=== PATIENT | female | born 1985 | race Caucasian/White ===

== ENCOUNTER 2016-06-19 15:34 | Emergency (ER) | payer MEDICARE, OTHER ==
[~2016-06-19] VITALS: Ht 165.1 cm; Wt 74.8 kg
[~2016-06-19 15:34] MED LIST: ACYC800T PO; CEPH-264 PO; DIPH35CR TP; DOCU-27 PO; FLUT9.9S NS; GABA-585 PO; HYDR-971 PO; IBUP-1060 PO; LEVO112T4 PO; LISI-334 PO; NAPR250T2 PO; ONDA4TAB7 PO; OXYC-244 PO; OXYC-323 PO; PENI250T2 PO; PRAZ2CAP2 PO; TRAM50TA PO; TRAZ50TA15 PO; VENL150C PO; ZIPR40CA2 PO; ZIPR80CA2 PO; [UNRECOGNIZED DRUG - CODE] PO
[2016-06-19 16:47] VITALS: BP 115/84
[2016-06-19] MEDS ORDERED: AMOX875T PO (16:56)
[2016-06-19] MEDS ORDERED: HYDR-79 PO (16:56)
--- NOTE | 2016-06-19 16:57 | PHYS DOC ---
Past Medical History Past Medical History: Bipolar Additional Past Medical Histor: agoraphobia, paranoid schizophrenia, psycotic behaviors Past Surgical History: , Hysterectomy, Other Additional Past Surgical Histo: hernia repair Alcohol Use: None Drug Use: None Adult General Chief Complaint Chief Complaint: DENTAL PROBLEM HPI HPI Patient is a 30 year old female with history of bipolar who presents today with left lower gum dental pain and swelling that began 2 or 3 weeks ago. Patient states she does not have money to see the dentist in [facility]. Patient denies any fever or trismus. Review of Systems Review of Systems Constitutional: Denies fever or chills [] Eyes: Denies change in visual acuity, redness, or eye pain [] HENT: Dental pain Integument: Denies rash or skin lesions [] Neurologic: Denies headache, focal weakness or sensory changes [] Endocrine: Denies polyuria or polydipsia [] Allergies Allergies Allergies Coded Allergies Type Severity Reaction Last Updated Verified acetaminophen Allergy Intermediate ITCHING 04/07/16 Yes oxycodone Allergy Intermediate ITCHING 04/07/16 Yes Physical Exam Physical Exam Constitutional: Well developed, well nourished, no acute distress, non-toxic appearance. [] HENT: Normocephalic, atraumatic, bilateral external ears normal, oropharynx moist, no oral exudates, nose normal. [] Browns tooth on the left lower gum has dental carriers and is decayed.There is small amount of swelling around the gum of left lower wisdom teeth with no fluctuance. Extremities: No tenderness, no cyanosis, no clubbing, ROM intact, no edema. [] Neurologic: Alert and oriented X 3, normal motor function, normal sensory function, no focal deficits noted. [] Psychologic: Affect normal, judgement normal, mood normal. [] Current Patient Data Vital Signs Vital Signs Date Time Temp Pulse Resp B/P Pulse Ox O2 Delivery O2 Flow Rate FiO2 06/19/16 16:47 98.2 88 18 99 Room Air 98.2 EKG EKG [] Radiology/Procedures Radiology/Procedures [] Course & Med Decision Making Course & Med Decision Making Pertinent Labs and Imaging studies reviewed. (See chart for details) Patient is in the Ed with Dental pain and abscess that is not ready to drain. D/ c with amoxicillin and Vicoprofen. F/u with her dentist in 7 days. Yong Disclaimer Yong Disclaimer This electronic medical record was generated, in whole or in part, using a voice recognition dictation system. Departure Departure Impression: Primary Impression: Dentalgia Additional Impression: Dental abscess Disposition: 01 HOME, SELF-CARE Condition: STABLE Referrals: NO PCP (PCP) follow up with your dentist in [place] as soon as possible Patient Instructions: Dental Abscess, Dental Caries Additional Instructions: You were seen for a dental abscess and dental carriers. Please complete your antibiotics. Follow up with your dentist in [place] as soon as you can Scripts Hydrocodone/Ibuprofen (Hydrocodone-Ibuprofen 7.5-200 )1 Each Tablet1 Tab PO PRN Q6HRS PRN PAIN #10 TAB Ref 0 Prov:EMMANUEL POST APRN 06/19/16 Amoxicillin 875 Mg Tablet1 Tab PO BID #20 TAB Prov:EMMANUEL POST APRN 06/19/16 Problem Qualifiers EMMANUEL POST APRN Jun 19, 2016 16:57
== END 2016-06-19 17:22 | disposition home or self-care (01) ==
LOC: ER 15:34
DX: K04.7 Periapical abscess without sinus (principal); F31.9 Bipolar disorder, unspecified; F20.0 Paranoid schizophrenia; F40.00 Agoraphobia, unspecified; Z90.710 Acquired absence of both cervix and uterus; Z88.5 Allergy status to narcotic agent; Z88.6 Allergy status to analgesic agent
CPT/HCPCS: 99283

== ENCOUNTER 2016-08-02 19:20 | Emergency (ER) | payer MEDICARE, OTHER ==
[~2016-08-02] VITALS: Ht 165.1 cm; Wt 70.3 kg
[~2016-08-02 19:20] MED LIST changes: +AMOX875T PO; +HYDR-79 PO
--- NOTE | 2016-08-02 21:20 | PHYS DOC ---
Past Medical History Past Medical History: Bipolar, Depression, Schizophrenia, Other Additional Past Medical Histor: PTSD Past Surgical History: , Hysterectomy, Other Additional Past Surgical Histo: UMBILICAL HERNIA REPAIR Alcohol Use: None Drug Use: None Adult General Chief Complaint Chief Complaint: DEPRESSION HPI HPI Patient is a 31 year old female who presents with anxiety due to going to a homeless care home this evening. Reports she has had intermittent anxiety and depression for years with a diagnosis of Bipolar. Denies any SI/HI. ALso c.o rash to face Review of Systems Review of Systems Constitutional: Denies fever or chills Eyes: Denies change in visual acuity, redness, or eye pain [] HENT: Denies nasal congestion or sore throat [] Respiratory: Denies cough or shortness of breath [] Cardiovascular: No additional information not addressed in HPI [] GI: Denies abdominal pain, nausea, vomiting, bloody stools or diarrhea [] : Denies dysuria or hematuria [] Musculoskeletal: Denies back pain or joint pain [] Integument: Rash to face for weeks Neurologic: Denies headache, focal weakness or sensory changes [] Endocrine: Denies polyuria or polydipsia [ psych: Anxious today Current Medications Current Medications Current Medications Medications (Trade) Dose Ordered Sig/Daryl Start Time Stop Time Status Last Admin Dose Admin Alprazolam (Xanax) 0.5 mg 1X ONCE 08/02/16 22:15 08/02/16 22:16 DC 08/02/16 22:02 0.5 MG Allergies Allergies Allergies Coded Allergies Type Severity Reaction Last Updated Verified acetaminophen Allergy Intermediate ITCHING 04/07/16 Yes oxycodone Allergy Intermediate ITCHING 04/07/16 Yes Physical Exam Physical Exam Constitutional: Well developed, well nourished, no acute distress, non-toxic appearance. HENT: Normocephalic, atraumatic, bilateral external ears normal, oropharynx moist, no oral exudates, nose normal. Eyes: PERRLA, EOMI, conjunctiva normal, no discharge. [] Neck: Normal range of motion, no tenderness, supple, no stridor. [] Cardiovascular:Heart rate regular rhythm, no murmur [] Lungs & Thorax: Bilateral breath sounds clear to auscultation [] Abdomen: Bowel sounds normal, soft, no tenderness, no masses, no pulsatile masses. [] Skin: Papular rash to right cheek lateral to mouth. Yellow crusting present. No surrounding cellulitis Back: No tenderness, no CVA tenderness. [] Extremities: No tenderness, no cyanosis, no clubbing, ROM intact, no edema. [] Neurologic: Alert and oriented X 3, normal motor function, normal sensory function, no focal deficits noted. [] Psychologic: Affect normal, judgement normal, mood normal. Current Patient Data Vital Signs Vital Signs Date Time Temp Pulse Resp B/P Pulse Ox O2 Delivery O2 Flow Rate FiO2 08/02/16 22:03 90 20 138/93 97 Room Air 08/02/16 19:26 98.1 98.1 EKG EKG [] Radiology/Procedures Radiology/Procedures [] Impressions: 1. Anxiety 2. Impetigo Course & Med Decision Making Course & Med Decision Making Pertinent Labs and Imaging studies reviewed. (See chart for details) [] Dragon Disclaimer Dragon Disclaimer This electronic medical record was generated, in whole or in part, using a voice recognition dictation system. Departure Departure Impression: Primary Impression: Anxiety Additional Impression: Impetigo Disposition: 01 HOME, SELF-CARE Condition: STABLE Referrals: NO PCP (PCP) Patient Instructions: Anxiety and Panic Attacks, [id number], Impetigo Additional Instructions: Follow up with your primary doctor as discussed. Return if any problems or concerns Scripts Bacitracin 30 Gm Oint...g.1 Rebecca TP BID #30 GM Prov:CHIN DOUGLAS APRN 08/02/16 Problem Qualifiers CHNI DOUGLAS APRN Aug 02, 2016 21:20
[2016-08-02 22:03] VITALS: BP 138/93
[2016-08-02] MEDS ORDERED: BACI28.43 TP (22:09)
[2016-08-02] MEDS ORDERED: ALPRAZOLAM 0.5 MG TABLET PO ONE (22:15)
--- NOTE | 2016-08-03 06:28 | EKG ---
[facility] [address] [place] [address] Test Date: 2016-08-02 Test Time: 19:48:01 Pat Name: PACHECO MACHADO Department: Room: Gender: F Senior Hr Business Partner: : [id number] Requested By: CHIN DOUGLAS Order Number: [id number] Reading MD: Cristhian Kaplan Measurements Intervals [place] Rate: 85 P: 52 MD: 144 QRS: 43 QRSD: 88 T: 50 QT: 376 QTc: 448 Interpretive Statements SINUS RHYTHM RI6.01 Unconfirmed report Electronically Signed On 08-06-2016 13:51:47 TOW MOTOR DRIVER by Cristhian Kaplan
== END 2016-08-02 22:10 | disposition home or self-care (01) ==
LOC: ER 19:20
DX: F41.9 Anxiety disorder, unspecified (principal); L01.00 Impetigo, unspecified; F31.9 Bipolar disorder, unspecified; F20.9 Schizophrenia, unspecified; F43.10 Post-traumatic stress disorder, unspecified; Z88.8 Allergy status to other drugs, medicaments and biological substances; Z88.5 Allergy status to narcotic agent
CPT/HCPCS: 93005; 99284-25

== ENCOUNTER 2016-10-08 00:29 | Emergency (ER) | payer MEDICARE, OTHER ==
[~2016-10-08] VITALS: Ht 165.1 cm; Wt 74.8 kg
[~2016-10-08 00:29] MED LIST changes: +BACI28.43 TP; -PENI250T2 PO; +PENI250T85 PO
[2016-10-08 00:44] VITALS: BP 154/94
[2016-10-08] MEDS ORDERED: chlorproMAZINE 25 MG TABLET PO STA (00:48)
[2016-10-08] MEDS ORDERED: chlorproMAZINE 25 MG TABLET PO ONE (01:00)
[2016-10-08] MEDS ORDERED: LEVO112T4 PO (01:03)
[2016-10-08] MEDS ORDERED: OXCA300T3 PO (01:03)
[2016-10-08] MEDS ORDERED: PRAZ2CAP2 PO (01:03)
[2016-10-08] MEDS ORDERED: LISI-334 PO (01:03)
[2016-10-08] MEDS ORDERED: CHLO50TA6 PO (01:03)
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
== END 2016-10-08 01:18 | disposition home or self-care (01) ==
LOC: ER 00:29
DX: Z76.0 Encounter for issue of repeat prescription (principal); F31.9 Bipolar disorder, unspecified; I10 Essential (primary) hypertension; F20.9 Schizophrenia, unspecified; F43.10 Post-traumatic stress disorder, unspecified; Z88.5 Allergy status to narcotic agent; Z88.6 Allergy status to analgesic agent; Z79.899 Other long term (current) drug therapy
CPT/HCPCS: 99283; Q0161

== ENCOUNTER 2016-11-27 22:06 | Emergency (ER) | payer MEDICARE, OTHER ==
[~2016-11-27] VITALS: Ht 165.1 cm; Wt 79.8 kg
[~2016-11-27 22:06] MED LIST changes: +CHLO50TA6 PO; +DOCU-109 PO; -DOCU-27 PO; +OXCA300T3 PO; -OXYC-244 PO; +OXYC-327 PO; +SULF-16 PO; -[UNRECOGNIZED DRUG - CODE] PO
[2016-11-27 22:50] VITALS: BP 132/91
[2016-11-27] MEDS ORDERED: HYDROcodone/APAP 7.5/325MG 1 TAB TABLET PO ONE (23:30)
[2016-11-27] MEDS ORDERED: HYDR-971 PO (23:32)
--- NOTE | 2016-11-27 23:33 | PHYS DOC ---
Past Medical History Past Medical History: Hypothyroid Additional Past Medical Histor: PTSD Past Surgical History: , Hysterectomy, Other Additional Past Surgical Histo: hernia repair Alcohol Use: None Drug Use: None Adult General Chief Complaint Chief Complaint: ANKLE PROBLEM HPI HPI Patient is a 31 year old female who presents with complaint of right ankle injury. Patient states that she actually rolled her ankle approximately 30 minutes prior to arrival. Patient states that she was carrying groceries at the time when she took a misstep with her right foot and tripped, causing her right foot to invert. Patient states that she is having severe pain in her right ankle and has not been able to ambulate due to pain. Patient has noted swelling along the right lateral aspect of her ankle. Patient denies any other injuries. Patient rates her pain currently is 10 out of 10 and states that it is sharp and throbbing. Patient took 800 mg of ibuprofen prior to arrival with no relief in symptoms. Review of Systems Review of Systems Constitutional: Denies fever or chills [] HENT: Denies nasal congestion or sore throat [] Musculoskeletal: Right ankle injury [] Integument: Denies rash or skin lesions [] Neurologic: Denies headache, focal weakness or sensory changes [] Current Medications Current Medications Current Medications Medications (Trade) Dose Ordered Sig/Daryl Start Time Stop Time Status Last Admin Dose Admin Acetaminophen/ Hydrocodone Bitart (Lortab 7.5/325) 1 tab 1X ONCE 11/27/16 23:30 11/27/16 23:31 DC 11/27/16 23:32 1 TAB Allergies Allergies Allergies Coded Allergies Type Severity Reaction Last Updated Verified bupropion Allergy Intermediate 11/27/16 Yes oxycodone Allergy Intermediate ITCHING 04/07/16 Yes prazosin Allergy Intermediate 11/27/16 Yes venlafaxine Allergy Intermediate 11/27/16 Yes Physical Exam Physical Exam Constitutional: Alert, afebrile, appears in moderate discomfort. [] HENT: Normocephalic, atraumatic, bilateral external ears normal, oropharynx moist, no oral exudates, nose normal. [] Extremities: Moderate soft tissue swelling along right lateral malleolus, reported tenderness to palpation over bilateral malleoli, range of motion not tested secondary to pain, 2+ right dorsalis pedis and posterior tibialis pulses. [] Neurologic: Alert and oriented X 3, normal motor function, normal sensory function, no focal deficits noted. [] Current Patient Data Vital Signs Vital Signs Date Time Temp Pulse Resp B/P (MAP) Pulse Ox O2 Delivery O2 Flow Rate FiO2 11/27/16 23:32 Room Air 11/27/16 22:50 98.5 96 20 95 98.5 EKG EKG Not performed [] Radiology/Procedures Radiology/Procedures 3 view ankle x-ray series interpreted by me: No fractures, moderate soft tissue over lateral malleolus, normal alignment [] Course & Med Decision Making Course & Med Decision Making Pertinent Labs and Imaging studies reviewed. (See chart for details) Patient was given oral [place] in the emergency department. X-rays negative. Patient's symptoms consistent with acute right ankle sprain. An Vishal wrap was applied to the right ankle by the emergency department forest technician. My evaluation post Vishal wrap application showed normal capillary refill in all 5 digits of the right foot and normal sensation. Patient provided with crutches to assist with ambulation. Patient will be discharged with recommended follow- up in 7-10 days a primary doctor if symptoms not improving and return to emergency department for any worsening symptoms. Patient voiced understanding and in agreement with treatment plan. Dragon Disclaimer Dragon Disclaimer This electronic medical record was generated, in whole or in part, using a voice recognition dictation system. Departure Departure Impression: Primary Impression: Right ankle sprain Disposition: 01 HOME, SELF-CARE Condition: IMPROVED Referrals: NO PCP (PCP) Patient Instructions: Ankle Sprain, RICE - Routine Care for Injuries Additional Instructions: Follow-up with your primary doctor in the next 7-10 days if symptoms are not improving. Return to the emergency department for any worsening symptoms. Scripts Hydrocodone/Apap 5-325 (NORCO 5-325 TABLET) 1 Each Tablet 1-2 TAB PO Q4-6HRS Y for PAIN, #15 TAB Prov: STELLA ALAMO MD 11/27/16 Problem Qualifiers Primary Impression: Right ankle sprain Encounter type: initial encounter Involved ligament of ankle: unspecified ligament Qualified Codes: S93.401A - Sprain of unspecified ligament of right ankle, initial encounter STELLA ALAMO MD Nov 27, 2016 23:33
--- NOTE | 2016-11-28 07:15 | RAD ---
Indication: Right ankle injury with pain on the medial and lateral side. Time of exam 2308 hours. 3 views of the right ankle were obtained. There is lateral soft tissue swelling present. The alignment is normal. Ankle mortise is well-maintained. The talar dome is smooth. No fractures are seen. Impression: Lateral ankle swelling. No acute bony abnormality is detected.
== END 2016-11-27 23:40 | disposition home or self-care (01) ==
LOC: ER 22:06
DX: S93.401A Sprain of unspecified ligament of right ankle, initial encounter (principal); E03.9 Hypothyroidism, unspecified; F43.10 Post-traumatic stress disorder, unspecified; Z88.5 Allergy status to narcotic agent; Z88.8 Allergy status to other drugs, medicaments and biological substances; W01.0XXA Fall on same level from slipping, tripping and stumbling without subsequent striking against object, initial encounter; Y93.89 Activity, other specified; Y92.89 Other specified places as the place of occurrence of the external cause; Y99.8 Other external cause status
CPT/HCPCS: 73610; 99284-25

== ENCOUNTER 2016-12-14 22:35 | Emergency (ER) | payer MEDICARE, OTHER ==
[~2016-12-14] VITALS: Ht 165.1 cm; Wt 79.8 kg
[2016-12-14 22:45] VITALS: BP 137/94
[2016-12-14] MEDS ORDERED: HYDROcodone/APAP 5/325MG 1 TAB TABLET PO ONE (23:00)
[2016-12-14] MEDS ORDERED: IBUPROFEN 400 MG TABLET. PO ONE (23:00)
[2016-12-14] MEDS ORDERED: HYDR-971 PO (23:06)
--- NOTE | 2016-12-14 23:09 | PHYS DOC ---
Past Medical History Past Medical History: Bipolar, Hypothyroid Additional Past Medical Histor: PTSD, Schizoaffective disorder Past Surgical History: , Hysterectomy, Other Additional Past Surgical Histo: hernia repair Alcohol Use: None Drug Use: Methamphetamine Social History Narrative: patient requesting detox info 12/14 (provided with [employer] info) Adult General Chief Complaint Chief Complaint: ANKLE PROBLEM HPI HPI Patient is a 31 year old female presenting to the emergency department for evaluation of right ankle pain that she says has persisted since her injury for which she was seen on November 27. She has fell several times since then and that she is still limping on it and it still hurts significantly mostly at the medial malleolus but it comes across the front of her ankle. Mealy there is mild medial malleolus swelling but there is no redness warmth or signs of infection. She is not wearing the splint on arrival but she says that she hasn' t and that she is homeless and has to ambulate a lot and that it makes it hurt more. Review of Systems Review of Systems Constitutional: Denies fever or chills [] Musculoskeletal: Denies back pain. + joint pain [] Integument: Denies rash or skin lesions [] Neurologic: Denies headache, focal weakness or sensory changes [] Current Medications Current Medications Current Medications Medications (Trade) Dose Ordered Sig/Daryl Start Time Stop Time Status Last Admin Dose Admin Acetaminophen/ Hydrocodone Bitart (Lortab 5/325) 2 tab 1X ONCE 12/14/16 23:00 12/14/16 23:01 DC 12/14/16 22:58 2 TAB Ibuprofen (Motrin) 400 mg 1X ONCE 12/14/16 23:00 12/14/16 23:01 DC 12/14/16 22:58 400 MG Allergies Allergies Allergies Coded Allergies Type Severity Reaction Last Updated Verified No Known Drug Allergies 12/14/16 No Physical Exam Physical Exam Constitutional: Well developed, well nourished, no acute distress, non-toxic appearance. [] Extremities: Right medial malleolus and anterior ankle slightly swollen and painful to palpation. Joint is stable with no laxity and she did not have significant pain on movement of the joint. Neurologic: Alert and oriented X 3, normal motor function, normal sensory function, no focal deficits noted. [] Current Patient Data Vital Signs Vital Signs Date Time Temp Pulse Resp B/P (MAP) Pulse Ox O2 Delivery O2 Flow Rate FiO2 12/14/16 22:45 98.0 120 18 95 Room Air 98.0 EKG EKG [] Radiology/Procedures Radiology/Procedures Right ankle x-ray shows no obvious fracture dislocation or soft tissue abnormality. Course & Med Decision Making Course & Med Decision Making She may have a stress fracture but I cannot see anything on x-ray. He may have a serious ligamentous injury so I told her that she needs to follow with orthopedics for this injury and that coming to the emergency department will not be helpful on subsequent encounters and she needs specialty follow-up. Patient aware and agreeable with plan. Dragon Disclaimer Dragon Disclaimer This electronic medical record was generated, in whole or in part, using a voice recognition dictation system. Departure Departure Impression: Primary Impression: Right ankle sprain Disposition: HOME, SELF-CARE Condition: GOOD Referrals: NO PCP (PCP) GIANNI COTE MD Patient Instructions: Ankle Fracture Additional Instructions: TAKE 400MG OF IBUPROFEN EVERY 6 HOURS AND THE NORCO FOR BREAKTHROUGH PAIN. WEAR YOU SOFT SPLINT. YOU NEED TO FOLLOW WITH THE ORTHO DOCTOR. Scripts Hydrocodone/Apap 5-325 (NORCO 5-325 TABLET) 1 Each Tablet 1 TAB PO PRN Q6HRS Y for PAIN, #10 TAB 0 Refills Prov: CARIE ARROYO DO 12/14/16 Problem Qualifiers Primary Impression: Right ankle sprain Encounter type: subsequent encounter Involved ligament of ankle: tibiofibular ligament Qualified Codes: S93.431D - Sprain of tibiofibular ligament of right ankle, subsequent encounter CARIE ARROYO DO Dec 14, 2016 23:09
--- NOTE | 2016-12-15 08:01 | RAD ---
Right ankle 3 views. History: Pain, injury 2 weeks ago 3 views were taken of the right ankle. There is a fracture of the posterior malleolus of the distal tibia without displacement. No other acute fracture is noted. Impression: 1. Vertical fracture through the posterior aspect of the talus without displacement.
== END 2016-12-14 23:13 | disposition home or self-care (01) ==
LOC: ER 22:35
DX: S93.431D Sprain of tibiofibular ligament of right ankle, subsequent encounter (principal); E03.9 Hypothyroidism, unspecified; F31.9 Bipolar disorder, unspecified; F25.9 Schizoaffective disorder, unspecified; F43.10 Post-traumatic stress disorder, unspecified; F15.10 Other stimulant abuse, uncomplicated; X58.XXXD Exposure to other specified factors, subsequent encounter
CPT/HCPCS: 73610; 99284

== ENCOUNTER 2017-07-11 13:02 | Emergency (ER) | payer MEDICARE, OTHER ==
[2017-07-11] MEDS: HYDROcodone/APAP 5/325MG 1 TAB TABLET PO ×2 (14:16)
== END 2017-07-11 14:29 | disposition home or self-care (01) ==
LOC: ER 13:02
DX: K02.9 Dental caries, unspecified (principal); K08.89 Other specified disorders of teeth and supporting structures; K04.7 Periapical abscess without sinus; E03.9 Hypothyroidism, unspecified; F43.10 Post-traumatic stress disorder, unspecified; F31.9 Bipolar disorder, unspecified; F25.9 Schizoaffective disorder, unspecified
CPT/HCPCS: 99282

== ENCOUNTER 2018-01-15 21:15 | Emergency (ER) | payer MEDICARE, OTHER ==
[~2018-01-15] VITALS: Ht 162.6 cm; Wt 77.1 kg
[~2018-01-15 21:15] MED LIST changes: -NAPR250T2 PO; +NAPR250T6 PO; +TRAZ-85 PO; -TRAZ50TA15 PO
[2018-01-15 21:38] VITALS: BP 147/98
[2018-01-15] MEDS ORDERED: CLIN300C8 PO (21:50)
--- NOTE | 2018-01-15 21:50 | PHYS DOC ---
Past Medical History Past Medical History: Bipolar, Hypothyroid Additional Past Medical Histor: PTSD, Schizoaffective disorder Past Surgical History: , Hysterectomy, Other Additional Past Surgical Histo: hernia repair Alcohol Use: None Drug Use: None Adult General Chief Complaint Chief Complaint: DENTAL PROBLEM [facility] HPI Patient is a 32 year old female presents to the ED complaining of dental pain 2 days ago. Patient has a history of dental pain. States she's been trying to get into the dentist but is unable to get in. Describes the pain as sharp. Rates pain as 8 out of 10. Pain with chewing. Denies difficulty swallowing, tongue swelling, fever, chest pain, shortness of breath, nausea/vomiting, abdominal pain, rash or weakness. Review of Systems Review of Systems Constitutional: Denies fever or chills [] Eyes: Denies change in visual acuity, redness, or eye pain [] HENT: Complains of dental pain. Denies nasal congestion or sore throat [] Respiratory: Denies cough or shortness of breath [] Cardiovascular: No additional information not addressed in HPI [] GI: Denies abdominal pain, nausea, vomiting, bloody stools or diarrhea [] : Denies dysuria or hematuria [] Musculoskeletal: Denies back pain or joint pain [] Integument: Denies rash or skin lesions [] Neurologic: Denies headache, focal weakness or sensory changes [] All other systems were reviewed and found to be within normal limits, except as documented in this note. Allergies Allergies Allergies Coded Allergies Type Severity Reaction Last Updated Verified No Known Drug Allergies 12/14/16 No Physical Exam Physical Exam Constitutional: Well developed, well nourished, no acute distress, non-toxic appearance. [] HENT: Normocephalic, atraumatic, bilateral external ears normal, oropharynx moist, no oral exudates, nose normal. left lower molar dental caries. no abscess or fluctuance. Poor dentition throughout.[] Eyes: PERRLA, EOMI, conjunctiva normal, no discharge. [] Neck: Normal range of motion, no tenderness, supple, no stridor. [] Cardiovascular:Heart rate regular rhythm, no murmur [] Lungs & Thorax: Bilateral breath sounds clear to auscultation [] Skin: Warm, dry, no erythema, no rash. [] Neurologic: Alert and oriented X 3, normal motor function, normal sensory function, no focal deficits noted. [] Psychologic: Affect normal, judgement normal, mood normal. [] Current Patient Data Vital Signs Vital Signs Date Time Temp Pulse Resp B/P (MAP) Pulse Ox O2 Delivery O2 Flow Rate FiO2 01/15/18 21:38 98.1 104 20 147/98 (114) 99 Room Air 98.1 EKG EKG [] Radiology/Procedures Radiology/Procedures [] Course & Med Decision Making Course & Med Decision Making Pertinent Labs and Imaging studies reviewed. (See chart for details) []Will prescribe clindamycin outpatient. Discussed symptomatic treatment outpatient. Patient given dental clinic resource handout. Discussed follow-up and reasons to return to the ED. Patient understands and agrees with plan. Dragon Disclaimer Dragon Disclaimer This electronic medical record was generated, in whole or in part, using a voice recognition dictation system. Departure Departure Impression: Primary Impression: Dental caries Additional Impression: Pain, dental Disposition: 01 HOME, SELF-CARE Condition: IMPROVED Referrals: YOSEPH PANIAGUA MD (PCP) MANNIE SILVER DDS Patient Instructions: Dental Caries, Dental Pain Scripts Clindamycin Hcl (CLINDAMYCIN HCL) 300 Mg Capsule 1 CAP PO TID for 7 Days, #21 CAP Prov: KUNAL RIVERS 01/15/18 Problem Qualifiers KUNAL RIVERS Jan 15, 2018 21:50
== END 2018-01-15 22:10 | disposition home or self-care (01) ==
LOC: ER 21:15
DX: K02.9 Dental caries, unspecified (principal); K08.89 Other specified disorders of teeth and supporting structures; E03.9 Hypothyroidism, unspecified; F31.9 Bipolar disorder, unspecified; F25.9 Schizoaffective disorder, unspecified; F43.10 Post-traumatic stress disorder, unspecified
CPT/HCPCS: 99283

== ENCOUNTER 2018-01-18 16:41 | Emergency (ER) | payer MEDICARE, OTHER ==
[~2018-01-18] VITALS: Ht 162.6 cm; Wt 77.1 kg
[~2018-01-18 16:41] MED LIST changes: +CLIN300C8 PO
[2018-01-18 16:42] VITALS: BP 148/83
[2018-01-18] MEDS ORDERED: CLIN300C8 PO (17:09)
--- NOTE | 2018-01-18 17:11 | PHYS DOC ---
Past Medical History Past Medical History: Bipolar, Hypothyroid Additional Past Medical Histor: PTSD, Schizoaffective disorder Past Surgical History: , Hysterectomy, Other Additional Past Surgical Histo: hernia repair Alcohol Use: None Drug Use: None Adult General Chief Complaint Chief Complaint: DENTAL PROBLEM [facility] HPI Patient is a 32 year old female presents to the ED complaining of dental pain 5 days. Patient seen on the 3 days ago on the by myself and was discharged with clindamycin. States that she did not wait for the antibiotic prescription because she had to leave so she did not get her antibiotic prescription from the nurse at discharge. Presents to the ED today for her antibiotic prescription. Complains of dental pain to left lower molars. Describes the pain as sharp. Rates the pain as 8 out of 10. Denies injury, fever, nausea/vomiting, chest pain, shortness of breath, headache, difficulty swallowing or rash. Review of Systems Review of Systems Constitutional: Denies fever or chills [] Eyes: Denies change in visual acuity, redness, or eye pain [] HENT: Complains of dental pain. Denies nasal congestion or sore throat [] Respiratory: Denies cough or shortness of breath [] Cardiovascular: No additional information not addressed in HPI [] GI: Denies abdominal pain, nausea, vomiting, bloody stools or diarrhea [] : Denies dysuria or hematuria [] Musculoskeletal: Denies back pain or joint pain [] Integument: Denies rash or skin lesions [] Neurologic: Denies headache, focal weakness or sensory changes [] All other systems were reviewed and found to be within normal limits, except as documented in this note. Allergies Allergies Allergies Coded Allergies Type Severity Reaction Last Updated Verified No Known Drug Allergies 12/14/16 No Physical Exam Physical Exam Constitutional: Well developed, well nourished, no acute distress, non-toxic appearance. [] HENT: Normocephalic, atraumatic, bilateral external ears normal, oropharynx moist, no oral exudates, nose normal. Left lower molar dental caries. No abscess or fluctuance. Poor dentition throughout. Eyes: PERRLA, EOMI, conjunctiva normal, no discharge. [] Neck: Normal range of motion, no tenderness, supple, no stridor. [] Cardiovascular:Heart rate regular rhythm, no murmur [] Lungs & Thorax: Bilateral breath sounds clear to auscultation [] Skin: Warm, dry, no erythema, no rash. [] Neurologic: Alert and oriented X 3, normal motor function, normal sensory function, no focal deficits noted. [] Psychologic: Affect normal, judgement normal, mood normal. [] Current Patient Data Vital Signs Vital Signs Date Time Temp Pulse Resp B/P (MAP) Pulse Ox O2 Delivery O2 Flow Rate FiO2 01/18/18 16:42 98.2 82 16 97 Room Air 98.2 EKG EKG [] Radiology/Procedures Radiology/Procedures [] Course & Med Decision Making Course & Med Decision Making Pertinent Labs and Imaging studies reviewed. (See chart for details) Staff Physician Addendum: I was working in the ER during the course of this patient's visit. I was available for consultation as needed, but I was not directly involved in the care of this patient. Nimo Chavez DO Staff Physician Yong Disclaimer Dragon Disclaimer This electronic medical record was generated, in whole or in part, using a voice recognition dictation system. Departure Departure Impression: Primary Impression: Dental caries Disposition: 01 HOME, SELF-CARE Condition: IMPROVED Referrals: YOSEPH PANIAGUA MD (PCP) MANNIE SILVER DDS Patient Instructions: Dental Caries Scripts Clindamycin Hcl (CLINDAMYCIN HCL) 300 Mg Capsule 300 MG PO TID for 7 Days, #21 CAP Prov: KUNAL RIVERS 01/18/18 KUNAL RIVERS Jan 18, 2018 17:11 NIMO CHAVEZ DO Jan 19, 2018 06:36
== END 2018-01-18 17:17 | disposition home or self-care (01) ==
LOC: ER 16:41
DX: K02.9 Dental caries, unspecified (principal); K08.89 Other specified disorders of teeth and supporting structures; E03.9 Hypothyroidism, unspecified; F31.9 Bipolar disorder, unspecified; F25.9 Schizoaffective disorder, unspecified; F43.10 Post-traumatic stress disorder, unspecified
CPT/HCPCS: 99283

== ENCOUNTER 2018-02-14 18:42 | Emergency (ER) | payer MEDICARE, OTHER | END 2018-02-14 20:45 | disposition left against medical advice (07) | LOC: ER 18:42 | DX: R51 Headache (principal); H53.8 Other visual disturbances; Z53.21 Procedure and treatment not carried out due to patient leaving prior to being seen by health care provider; X58.XXXA Exposure to other specified factors, initial encounter; Y93.89 Activity, other specified; Y92.89 Other specified places as the place of occurrence of the external cause; Y99.8 Other external cause status ==

== ENCOUNTER 2021-09-11 10:10 | Emergency (ER) | payer MEDICARE, OTHER ==
[~2021-09-11] VITALS: Ht 165.1 cm; Wt 74.8 kg
[~2021-09-11 10:10] MED LIST changes: -ACYC800T PO; +ACYC800T88 PO; +CLIN-94 PO; -CLIN300C8 PO; +HYDR-3164 PO; -HYDR-79 PO; -HYDR-971 PO; +HYDROCODONE-IB1 EAC3 PO; -LEVO112T4 PO; +LEVO112T49 PO; -LISI-334 PO; +LISI20TA18 PO; +NAPR-699 PO; -NAPR250T6 PO; -OXYC-323 PO; -OXYC-327 PO; +OXYC1TAB15 PO; +OXYC1TAB19 PO; +TRAZ-118 PO; -TRAZ-85 PO; -VENL150C PO; +VENL150C3 PO
[2021-09-11 10:24] VITALS: BP 169/115
[2021-09-11] MEDS ORDERED: traMADol 50 MG TABLET PO ONE (10:45)
[2021-09-11] MEDS ORDERED: DIPHTH,PERTUSS(ACELL),TET TOX 0.5 ML DISP.SYRIN. VAX IM ONE (10:45)
[2021-09-11] MEDS ORDERED: AMOX1TAB61 PO (11:16)
--- NOTE | 2021-09-11 11:18 | PHYS DOC ---
Past Medical History Past Medical History: Bipolar, Hypothyroid Additional Past Medical Histor: PTSD, Schizoaffective disorder Past Surgical History: , Hysterectomy, Other Additional Past Surgical Histo: hernia repair Smoking Status: Current Every Day Smoker Alcohol Use: None Drug Use: None General Adult EDM: Chief Complaint: ANIMAL BITE HPI: HPI: Patient is a 36 year old female who presents with dog bite to the left forearm. Patient states the dog was given to them by a friend. They are unsure if the dog was up-to-date on shots prior to them assuming care, but dog has received regular veterinary care. Patient does not report any active bleeding. She states that the abrasions where the dog bit her are painful to the point that it hurts to move her wrist. She is not sure of the last time she had a tetanus vaccination. Patient has no other complaints at this time. Review of Systems: Review of Systems: ROS negative or noncontributory except as mentioned in HPI. Heart Score: C/O Chest Pain: No Current Medications: Current Medications Medications (Trade) Dose Ordered Sig/Daryl Start Time Stop Time Status Last Admin Dose Admin Diphtheria/ Tetanus/Acell Pertussis (Boostrix) 0.5 ml ONCE ONCE 09/11/21 10:45 09/11/21 10:48 DC Tramadol HCl (Ultram) 50 mg 1X ONCE 09/11/21 10:45 09/11/21 10:46 DC 09/11/21 10:41 50 MG Allergies: Allergies: Allergies Coded Allergies Type Severity Reaction Last Updated Verified No Known Drug Allergies 12/14/16 No Physical Exam: PE: Constitutional: Well developed, well nourished, no acute distress, non-toxic appearance. HENT: Normocephalic, atraumatic, bilateral external ears normal, nose normal. Eyes: EOMI, conjunctiva normal, no discharge. Neck: Normal range of motion, no stridor. Skin: 1 superficial laceration approximately 1.5 cm to the anterior aspect of medial distal left forearm, a few other superficial puncture wounds noted surrounding the rest of the distal forearm. Skin otherwise warm, dry, no erythema, no rash. Extremities: Left distal forearm tender to palpation, active range of motion in tact, radial pulses 2+ and symmetrical. Extremities otherwise no tenderness, no cyanosis, no clubbing, ROM intact, no edema. Neurologic: Alert and oriented x4, normal motor function, normal sensory function, no focal deficits noted. Current Patient Data: Vital Signs: Vital Signs Date Time Temp Pulse Resp B/P (MAP) Pulse Ox O2 Delivery O2 Flow Rate FiO2 09/11/21 10:41 18 98 Room Air 09/11/21 10:24 98.0 90 169/115 (133) 98.0 Radiology/Procedures: Radiology/Procedures: PROCEDURE: FOREARM LEFT Exam: XR FOREARM_LEFT 2 VIEWS History: Dog bite distal left arm. Comparison: None. Findings: Osseous mineralization is normal. No acute fracture or dislocaton. Subcutaneous stranding of the distal forearm. No radiopaque foreign body identified. No subcutaneous emphysema. Impression: 1. No acute osseous abnormality of the left forearm. No radiopaque foreign body. Electronically signed by: Albert Nair MD (09/11/2021 11:17 AM) [id number] Course & Med Decision Making: Course & Med Decision Making Pertinent Labs and Imaging studies reviewed. (See chart for details) Patient is a 36-year-old female who presents with a dog bite on her left forearm. The dog is not a stray dog and currently belongs to the family. Discussed risk versus benefit of rabies vaccination and immunoglobulin's. Patient declines rabies prophylaxis at this time secondary to low risk of domesticated and housed canine neymar/transmitting rabies. Patient's tetanus vaccination was updated in the department. She was provided with tramadol for pain control. Wound was thoroughly irrigated and cleansed. Patient given electronic prescription for Augmentin. Return precautions were provided. Patient should have a wound check in 2-3 days. All of her questions were answered. Patient understands and is agreeable to discharge plan. Dragon Disclaimer: Dragon Disclaimer: This electronic medical record was generated, in whole or in part, using a voice recognition dictation system. Departure Departure Impression: Primary Impression: Dog bite of left forearm Qualified Codes: S51.852A - Open bite of left forearm, initial encounter; W54.0XXA - Bitten by dog, initial encounter Additional Impression: Elevated blood pressure reading Disposition: HOME / SELF CARE / HOMELESS Condition: STABLE Referrals: YOSEPH PANIAGUA MD (PCP) Patient Instructions: Animal Bite, [id number] Additional Instructions: Please have a wound check in the next 3 days with your primary care doctor. If you are unable to schedule an appointment within this timeframe, please visit urgent care or return to the ER for reevaluation. EMERGENCY DEPARTMENT GENERAL DISCHARGE INSTRUCTIONS Thank you for coming to Emergency Department (ED) today and trusting us with you care. We trust that you had a positive experience in our Emergency Department. If you wish to speak to the department management, you may call the director at . YOUR FOLLOW UP INSTRUCTIONS ARE FOLLOWS: 1. Follow up with your primary care doctor. If you do not have a primary doctor, please ask for a resource list of physicians or clinics that may be able to assist you with follow up care. 2. The emergency provider has interpreted your imaging studies, if any were ordered. The radiology medical imaging director also reviewed them. If there is a change in the findings, you will be notified in 48 hours when at all possible. 3. If a lab test or culture has been done, your results will be reviewed and you will be notified if you need a change in treatment. 4. Follow instructions verbalized to you and refer to the printouts if needed. ADDITIONAL INSTRUCTIONS AND INFORMATION: 1. Your care today has been supervised by a physician who is specially trained in emergency care. Many problems require more than one evaluation for a complete diagnosis and treatment. We recommend that you schedule your follow up appointment as recommended to ensure complete treatment of you illness or injury. If you are unable to obtain follow up care and continue to have a problem, or if your condition worsens, we recommend that you return to the ED. 2. We are not able to safely determine your condition over the phone nor are we able to give sound medical advice over the phone. For these safety reasons, if you call for medical advice we will ask you to come to the ED for further evaluation. 3. If you have any questions regarding these discharge instructions please call the ED at . SAFETY INFORMATION: In the interest of safety, wellness, and injury prevention; we encourage you to wear your seat belt, if you smoke; quite smoking, and we encourage family to use a protective helmet for bicycling and other sporting events that present an increased risk for head injury. IF YOUR SYMPTOMS WORSEN OR NEW SYMPTOMS DEVELOP, OR YOU HAVE CONCERNS ABOUT YOUR CONDITION; OR IF YOUR CONDITION WORSENS WHILE YOU ARE WAITING FOR YOUR FOLLOW UP APPOINTMENT; EITHER CONTACT YOUR PRIMARY CARE DOCTOR, THE PHYSICIAN WHOSE NAME AND NUMBER YOU WERE GIVEN, OR RETURN TO THE ED IMMEDIATELY. Scripts Amoxicillin/Potassium Clav (AUGMENTIN 875-125 TABLET) 1 Each Tablet 1 TAB PO BID for 10 Days, #20 TAB 0 Refills Prov: LAQUITA TOBIAS 09/11/21 LAQUITA TOBIAS Sep 11, 2021 11:18
== END 2021-09-11 11:35 | disposition home or self-care (01) ==
LOC: ER 10:10
DX: S51.852A Open bite of left forearm, initial encounter (principal); F31.9 Bipolar disorder, unspecified; E03.9 Hypothyroidism, unspecified; F43.10 Post-traumatic stress disorder, unspecified; W54.0XXA Bitten by dog, initial encounter; F17.200 Nicotine dependence, unspecified, uncomplicated; Y93.89 Activity, other specified; Y92.89 Other specified places as the place of occurrence of the external cause; Y99.8 Other external cause status
CPT/HCPCS: 73090; 90471; 90715; 99283-25